=== PATIENT | female | born 1935 | race Caucasian/White ===

== ENCOUNTER 2018-08-22 12:08 | Emergency (ER) | payer MEDICARE ==
[2018-08-22] MEDS ORDERED: DIPH,PERTUS(ACELL)TETVAC-LF 0.5 ML VIAL IM ONE (12:12)
[2018-08-22 12:18] VITALS: RESP 18
--- NOTE | 2018-08-22 12:32 | ED ---
General Adult HPI - General Source: RN notes reviewed <Elvis Bolanos - Last Filed: 08/22/18 15:02> <Souleymane Mendoza - Last Filed: 08/22/18 17:58> - General Stated complaint: syncope Time Seen by Provider: 08/22/18 12:08 - History of Present Illness Initial comments: This is an 82-year-old female presents emergency department after having fallen in a store. According to bystanders she was unresponsive for a short period of time at the store. Patient states she thinks she tripped over something and hit her head. There were no witnesses at the actual fall. According to EMS once shannan canas got her in the ambulance patient went unresponsive for a few seconds again. Patient denies any chest pain difficulty breathing shortness of breath per patient denies any back pain. Patient denies any upper extremity pain any abdominal pain in any hip pain. Patient states she has a little soreness to the right knee which has full range of motion. Patient denies any ankle pain. Patient denies any headache patient does have some bleeding to the lateral aspect of the left orbit. Patient does not take any blood thinners. Patient denies having a recent tetanus shot. (Elvis Bolanos) - Related Data Home Medications Medication Instructions Recorded Confirmed Desmopressin [Ddavp] 0.2 mg PO HS 08/22/18 08/22/18 Allergies Allergy/AdvReac Type Severity Reaction Status Date / Time No Known Allergies Allergy Verified 08/22/18 13:00 Review of Systems ROS Other: All systems not noted in ROS Statement are negative. <Elvis Bolanos - Last Filed: 08/22/18 15:02> ROS Other: All systems not noted in ROS Statement are negative. <Souleymane Mendoza P - Last Filed: 08/22/18 17:58> ROS Statement: Those systems with pertinent positive or pertinent negative responses have been documented in the HPI. General Exam <Elvis Bolanos - Last Filed: 08/22/18 15:02> - General Exam Comments Initial Comments: GENERAL: Patient is well-developed and well-nourished. Patient is nontoxic and well- hydrated and is in mild distress. ENT: Neck is soft and supple. No significant lymphadenopathy is noted. Oropharynx is clear. Moist mucous membranes. Neck has full range of motion without eliciting any pain. EYES: The sclera were anicteric and conjunctiva were pink and moist. Extraocular movements were intact and pupils were equal round and reactive to light. Eyelids were unremarkable. PULMONARY: Unlabored respirations. Good breath sounds bilaterally. No audible rales rhonchi or wheezing was noted. CARDIOVASCULAR: There is a regular rate and rhythm without any murmurs gallops or rubs. ABDOMEN: Soft and nontender with normal bowel sounds. SKIN: Patient has 2 lacerations to the lateral aspect of the left orbit one measuring 2.5 cm other measuring about 2 cm NEUROLOGIC: Patient is alert and oriented x3. Cranial nerves II through XII are grossly intact. Motor and sensory are also intact. Normal speech, volume and content. Symmetrical smile. MUSCULOSKELETAL: Normal extremities with adequate strength and full range of motion. LYMPHATICS: No significant lymphadenopathy is noted PSYCHIATRIC: Normal psychiatric evaluation. (Elvis Bolanos) Course Vital Signs 08/22/18 08/22/18 12:11 15:49 Temperature 97.8 F 98.1 F Pulse Rate 73 79 Respiratory 18 18 Rate Blood Pressure 104/69 138/81 O2 Sat by Pulse 98 99 Oximetry Procedures - Laceration Laceration #1 Consent Obtained: verbal consent Indication: laceration Site: face (lateral to left periorbital area) Size (cm): 3 Description: linear Depth: simple, single layer Anesthetic Used: lidocaine 1% Anesthesia Technique: local infiltration Amount (mls): 3 Pre-repair: wound explored, irrigated extensively (with saline pressure irrigiation) Type of Sutures: other (ethilon) Size of Sutures: 5-0 Number of Sutures: 4 Technique: simple, interrupted Patient Tolerated Procedure: well, no complications Laceration #2 Consent Obtained: verbal consent Indication: laceration Site: face (lateral/inferior to left eye) Size (cm): 2 Description: linear Depth: simple, single layer Anesthetic Used: lidocaine 1% Anesthesia Technique: local infiltration Amount (mls): 2 Pre-repair: wound explored, irrigated extensively Type of Sutures: other (ethilon) Size of Sutures: 5-0 Number of Sutures: 2 Technique: simple, interrupted Patient Tolerated Procedure: well, no complications <Souleymane Mendoza P - Last Filed: 08/22/18 17:58> Medical Decision Making - Lab Data Result diagrams: 08/22/18 12:30 08/22/18 12:30 <Elvis Bolanos - Last Filed: 08/22/18 15:02> - Lab Data Result diagrams: 08/22/18 12:30 08/22/18 12:30 <Souleymane Mendoza - Last Filed: 08/22/18 17:58> - Medical Decision Making EKG shows sinus rhythm at 72 bpm VT interval is 234 QRS is 82 QT intervals 422 QTC is 462. Patient's EKG shows an occasional PVC CT of the brain shows no acute abnormality. CT of the neck shows no acute normalities. Patient was able to ambulate without problem in the emergency department. Patient insisted she tripped while going around a corner her agreed with that assessment. Patient states that when she's nervous she does occasionally pass out and she states while she was sitting up for EMS she may have passed out but that is something comment for her to do. states he is in agreement with that that she often will pass out when she is anxious. (Elvis Bolanos) - Lab Data Lab Results 08/22/18 08/22/18 08/22/18 Range/Units 12:30 12:30 12:30 WBC 3.4 L (3.8-10.6) k/uL RBC 4.08 (3.80-5.40) m/uL Hgb 11.7 (11.4-16.0) gm/dL Hct 36.2 (34.0-46.0) % MCV 88.6 (80.0-100.0) fL MCH 28.7 (25.0-35.0) pg MCHC 32.4 (31.0-37.0) g/dL RDW 15.3 (11.5-15.5) % Plt Count 182 (150-450) k/uL Neutrophils % 57 % Lymphocytes % 30 % Monocytes % 7 % Eosinophils % 3 % Basophils % 1 % Neutrophils # 2.0 (1.3-7.7) k/uL Lymphocytes # 1.0 (1.0-4.8) k/uL Monocytes # 0.2 (0-1.0) k/uL Eosinophils # 0.1 (0-0.7) k/uL Basophils # 0.0 (0-0.2) k/uL PT 10.4 (9.0-12.0) sec INR 1.0 (<1.2) APTT 22.9 (22.0-30.0) sec Sodium 130 L (137-145) mmol/L Potassium 4.2 (3.5-5.1) mmol/L Chloride 98 (98-107) mmol/L Carbon Dioxide 24 (22-30) mmol/L Anion Gap 8 mmol/L BUN 17 (7-17) mg/dL Creatinine 0.73 (0.52-1.04) mg/dL Est GFR (CKD-EPI)AfAm 89 (>60 ml/min/1.73 sqM) Est GFR (CKD-EPI)NonAf 77 (>60 ml/min/1.73 sqM) Glucose 109 H (74-99) mg/dL Calcium 8.7 (8.4-10.2) mg/dL Magnesium 2.0 (1.6-2.3) mg/dL Total Bilirubin 0.7 (0.2-1.3) mg/dL AST 27 (14-36) U/L ALT 22 (9-52) U/L Alkaline Phosphatase 59 (38-126) U/L Troponin I (0.000-0.034) ng/mL Total Protein 6.1 L (6.3-8.2) g/dL Albumin 3.7 (3.5-5.0) g/dL 08/22/18 Range/Units 12:30 WBC (3.8-10.6) k/uL RBC (3.80-5.40) m/uL Hgb (11.4-16.0) gm/dL Hct (34.0-46.0) % MCV (80.0-100.0) fL MCH (25.0-35.0) pg MCHC (31.0-37.0) g/dL RDW (11.5-15.5) % Plt Count (150-450) k/uL Neutrophils % % Lymphocytes % % Monocytes % % Eosinophils % % Basophils % % Neutrophils # (1.3-7.7) k/uL Lymphocytes # (1.0-4.8) k/uL Monocytes # (0-1.0) k/uL Eosinophils # (0-0.7) k/uL Basophils # (0-0.2) k/uL PT (9.0-12.0) sec INR (<1.2) APTT (22.0-30.0) sec Sodium (137-145) mmol/L Potassium (3.5-5.1) mmol/L Chloride (98-107) mmol/L Carbon Dioxide (22-30) mmol/L Anion Gap mmol/L BUN (7-17) mg/dL Creatinine (0.52-1.04) mg/dL Est GFR (CKD-EPI)AfAm (>60 ml/min/1.73 sqM) Est GFR (CKD-EPI)NonAf (>60 ml/min/1.73 sqM) Glucose (74-99) mg/dL Calcium (8.4-10.2) mg/dL Magnesium (1.6-2.3) mg/dL Total Bilirubin (0.2-1.3) mg/dL AST (14-36) U/L ALT (9-52) U/L Alkaline Phosphatase (38-126) U/L Troponin I <0.012 (0.000-0.034) ng/mL Total Protein (6.3-8.2) g/dL Albumin (3.5-5.0) g/dL Disposition Is patient prescribed a controlled substance at d/c from ED?: No Time of Disposition: 15:04 <Elvis Bolanos - Last Filed: 08/22/18 15:02> <Souleymane Mendoza - Last Filed: 08/22/18 17:58> Clinical Impression: Head injury, Laceration of face Disposition: HOME SELF-CARE Condition: Good Instructions (If sedation given, give patient instructions): Head Injury (ED) Referrals: Raina Olmos DO [Primary Care Provider] - 1-2 days
[2018-08-22 13:05] LABS: Basophils % (A) 1 %; Eosinophils # (A) 0.1 k/uL (0-0.7); Eosinophils % (A) 3 %; HCT 36.2 % (34.0-46.0); HGB 11.7 gm/dL (11.4-16.0); Lymphocytes % (A) 30 %; MCH 28.7 pg (25.0-35.0); MCHC 32.4 g/dL (31.0-37.0); MCV 88.6 fL (80.0-100.0); Mean Platelet Volume 7.4; Monocytes # (A) 0.2 k/uL (0-1.0); Monocytes % (A) 7 %; Neutrophils % (A) 57 %; Platelet Count 182 k/uL (150-450); RBC 4.08 m/uL (3.80-5.40); RDW 15.3 % (11.5-15.5); WBC 3.4 k/uL (3.8-10.6)
[2018-08-22 13:16] LABS: Albumin 3.7 g/dL (3.5-5.0); Calcium 8.7 mg/dL (8.4-10.2); Partial Thromboplastin Time 22.9 sec (22.0-30.0); Prothrombin Time 10.4 sec (9.0-12.0); Total Bilirubin 0.7 mg/dL (0.2-1.3); Total Protein 6.1 g/dL (6.3-8.2)
[2018-08-22 13:18] LABS: Potassium 4.2 mmol/L (3.5-5.1)
--- NOTE | 2018-08-22 13:52 | CT ---
EXAMINATION TYPE: CT brain marissa wo con DATE OF EXAM: 08/22/2018 COMPARISON: None HISTORY: 82-year-old female fall from standing position, hit head with loss of consciousness. Pain. CT DLP: Not reported Automated exposure control for dose reduction was used. Technique: Examination of the head was done in axial plane without intravenous contrast. Coronal and sagittal reconstructions performed. CT of the cervical spine was obtained in axial plane without intravenous injection of contrast mater ial. Coronal and sagittal reformatted images were obtained from the axial views for evaluation of f ractures, spinal alignment and canal. FINDINGS: Head: There is no evidence of acute intracranial hemorrhage, acute ischemic changes, mass, mass-effect, or extra-axial fluid collection. There is no effacement of cerebral sulci or basal subarachnoid cister ns. There is no hydrocephalus. There is no midline shift. Burger-white matter distinction is preserv ed. Mild cerebral cortical atrophy. Paranasal sinuses and mastoid air cells are well pneumatized. Small polyps along the floor of the max illary sinuses. Leftward nasal septal deviation. Mastoid air cells well pneumatized. Cervical spine: No cranial cervical junction abnormality, predental space widening, or prevertebral soft tissue swell ing. Multilevel moderate spondylotic change, more advanced at C5-C6 and C6-C7. Disc ossific complex at C5- C6 causes moderate narrowing of the spinal canal. Trace grade 1 anterolisthesis at C3-C4, and C4-C5. No acute fracture of the cervical spine. Variable moderate neuroforaminal stenoses throughout Sagittal and coronal reformatted images confirm above findings. COMBINED IMPRESSION: 1. Mild cerebral atrophy without acute intracranial abnormality seen. 2. No acute fracture of the cervical spine. 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 Degenerative grade 1 spondylolisthesis from C3 through C5 levels.
[2018-08-22] MEDS ORDERED: LIDOCAINE 1% INJ 10MG/ML (20 ML MDV) SQ ONE (14:05)
[2018-08-22 15:51] VITALS: BP 138/81; PULSE 79; TEMP 98.1
== END 2018-08-22 15:51 | disposition home or self-care (01) ==
LOC: EC 12:08
DX: S01.112A Laceration without foreign body of left eyelid and periocular area, initial encounter (principal); S01.81XA Laceration without foreign body of other part of head, initial encounter; R55 Syncope and collapse; Z23 Encounter for immunization; Z79.899 Other long term (current) drug therapy; W01.10XA Fall on same level from slipping, tripping and stumbling with subsequent striking against unspecified object, initial encounter; Y92.512 Supermarket, store or market as the place of occurrence of the external cause
CPT/HCPCS: 36415; 93005; 80053; 83735; 84484; 85025; 85610; 85730; 72125; 70450; 90715; 99284; 12013; 90471; J2001